=== PATIENT | male | born 1975 | race Caucasian/White ===

== ENCOUNTER 2020-10-02 09:34 | Emergency (ER) | payer BC ==
--- NOTE | 2020-10-02 09:36 | EDM.PDOC ---
ED HPI GENERAL MEDICAL PROBLEM - General Stated Complaint: POSSIBLE KIDNEY STONE Time Seen by Provider: 10/02/20 10:12 Source of Information: Reports: Patient History Limitations: Reports: No Limitations - History of Present Illness INITIAL COMMENTS - FREE TEXT/NARRATIVE: 45-year-old male presents for concern for kidney stone. Asked medical history kidney stones, no past surgical history. Last kidney stone passed on its own without intervention. Patient states that he woke up around 4 AM with right- sided flank pain. Thought it was musculoskeletal in origin, took Motrin without relief. Went to work and notes continued pain. Feels kind of like when he had a kidney stone. Denies any hematuria or dysuria, nausea or vomiting, abdominal pain. Pain does not radiate. Right Flank Pain Score (Numeric/FACES): 7 - Related Data Allergies Allergy/AdvReac Type Severity Reaction Status Date / Time No Known Allergies Allergy Verified 10/02/20 10:07 Home Meds: Home Meds Acetaminophen/oxyCODONE [Percocet 325-5 MG] 1 each PO Q4HR PRN 3 Days #18 tab 10/02/20 [Rx] Ibuprofen [Motrin] 600 mg PO Q6H PRN #28 tab 10/02/20 [Rx] Tamsulosin HCl [Flomax] 0.4 mg PO DAILY #7 capsule 10/02/20 [Rx] ED ROS GENERAL - Review of Systems Review Of Systems: Comprehensive ROS is negative, except as noted in HPI. Constitutional: Reports: No Symptoms ED EXAM, GENERAL - Physical Exam Exam: See Below Exam Limited By: No Limitations General Appearance: Alert, WD/WN, No Apparent Distress Ears: Normal External Exam Nose: Normal Inspection Throat/Mouth: Normal Inspection, Normal Oropharynx, Normal Voice Head: Atraumatic, Normocephalic Neck: Normal Inspection Respiratory/Chest: No Respiratory Distress, Lungs Clear, Normal Breath Sounds, No Accessory Muscle Use Cardiovascular: Normal Peripheral Pulses, Regular Rate, Rhythm, No Edema GI/Abdominal: Soft, Non-Tender Back Exam: No: CVA Tenderness (L), CVA Tenderness (R) Extremities: Normal Inspection Neurological: Alert, Oriented Psychiatric: Normal Affect, Normal Mood Skin Exam: Warm, Dry, Intact, Normal Color Course - Vital Signs Last Recorded V/S: Last Vital Signs Temp 97 F 10/02/20 10:04 Pulse 88 10/02/20 10:04 Resp 18 10/02/20 10:04 BP 172/108 H 10/02/20 10:04 Pulse Ox 96 10/02/20 10:04 - Orders/Labs/Meds Orders: Active Orders 24 hr Category Date Time Status Sodium Chloride 0.9% [Normal Saline] 1,000 ml Med 10/02/20 10:05 Active IV .Bolus Sodium Chloride 0.9% [Saline Flush] Med 10/02/20 10:05 Active 10 ml FLUSH ASDIRECTED PRN Sodium Chloride 0.9% [Saline Flush] Med 10/02/20 10:05 Active 2.5 ml FLUSH ASDIRECTED PRN Saline Lock Insert [OM.PC] Stat Oth 10/02/20 10:05 Ordered Medication Orders Sodium Chloride (Normal Saline) 1,000 mls @ 999 mls/hr IV .Bolus ONE Stop: 10/02/20 11:05 Last Admin: 10/02/20 10:17 Dose: 999 mls/hr Documented by: HANSMAC Sodium Chloride (Saline Flush) 10 ml FLUSH ASDIRECTED PRN PRN Reason: Keep Vein Open Last Admin: 10/02/20 10:22 Dose: 10 ml Documented by: HANSMAC Sodium Chloride (Saline Flush) 2.5 ml FLUSH ASDIRECTED PRN PRN Reason: Keep Vein Open Last Admin: 10/02/20 10:22 Dose: 2.5 ml Documented by: HANSMAC Labs: Laboratory Tests 10/02/20 10/02/20 10/02/20 Range/Units 10:02 10:02 10:15 WBC 10.35 (4.0-11.0) K/uL RBC 4.75 (4.50-5.90) M/uL Hgb 14.6 (13.0-17.0) g/dL Hct 42.6 (38.0-50.0) % MCV 89.7 (80.0-98.0) fL MCH 30.7 (27.0-32.0) pg MCHC 34.3 (31.0-37.0) g/dL RDW Std Deviation 40.5 (28.0-62.0) fl RDW Coeff of [place] 12 (11.0-15.0) % Plt Count 188 (150-400) K/uL MPV 12.20 H (7.40-12.00) fL Neut % (Auto) 73.0 (48.0-80.0) % Lymph % (Auto) 15.8 L (16.0-40.0) % [place] % (Auto) 8.9 (0.0-15.0) % Eos % (Auto) 2.0 (0.0-7.0) % Baso % (Auto) 0.3 (0.0-1.5) % Neut # (Auto) 7.6 H (1.4-5.7) K/uL Lymph # (Auto) 1.6 (0.6-2.4) K/uL [place] # (Auto) 0.9 H (0.0-0.8) K/uL Eos # (Auto) 0.2 (0.0-0.7) K/uL Baso # (Auto) 0.0 (0.0-0.1) K/uL Nucleated RBC % 0.0 /100WBC Nucleated RBCs # 0 K/uL Sodium 140 (136-148) mmol/L Potassium 4.4 (3.5-5.1) mmol/L Chloride 105 (98-107) mmol/L Carbon Dioxide 24.3 (21.0-32.0) mmol/L BUN 19 H (7.0-18.0) mg/dL Creatinine 1.5 H (0.8-1.3) mg/dL Est Cr Clr Drug Dosing 64.21 mL/min Estimated GFR (MDRD) 50.6 ml/min Glucose 257 H (74-106) mg/dL Calcium 9.3 (8.5-10.1) mg/dL Total Bilirubin 0.3 (0.2-1.0) mg/dL AST 37 (15-37) IU/L ALT 92 H (14-63) IU/L Alkaline Phosphatase 80 (46-116) U/L Total Protein 7.2 (6.4-8.2) g/dL Albumin 3.7 (3.4-5.0) g/dL Globulin 3.5 (2.6-4.0) g/dL Albumin/Globulin Ratio 1.1 (0.9-1.6) Urine Color YELLOW Urine Appearance CLEAR Urine pH 6.5 (5.0-8.0) Ur Specific [place] 1.020 (1.001-1.035) Urine Protein NEGATIVE (NEGATIVE) mg/dL Urine Glucose (UA) 500 H (NEGATIVE) mg/dL Urine Ketones NEGATIVE (NEGATIVE) mg/dL Urine Occult Blood LARGE H (NEGATIVE) Urine Nitrite NEGATIVE (NEGATIVE) Urine Bilirubin NEGATIVE (NEGATIVE) Urine Urobilinogen 0.2 (<2.0) EU/dL Ur Leukocyte Esterase NEGATIVE (NEGATIVE) Urine RBC 0-4 (0-2/HPF) Urine WBC 0-1 (0-5/HPF) Ur Epithelial Cells RARE (NONE-FEW) Amorphous Sediment LIGHT (NEGATIVE) Urine Bacteria RARE (NEGATIVE) Meds: Medications Generic Name Dose Route Start Last Admin Trade Name Freq PRN Reason Stop Dose Admin Sodium Chloride 1,000 mls @ 999 mls/hr 10/02/20 10:05 10/02/20 10:17 Normal Saline IV 10/02/20 11:05 999 mls/hr .Bolus ONE Administration Sodium Chloride 10 ml 10/02/20 10:05 10/02/20 10:22 Saline Flush FLUSH 10 ml ASDIRECTED PRN Administration Keep Vein Open Sodium Chloride 2.5 ml 10/02/20 10:05 10/02/20 10:22 Saline Flush FLUSH 2.5 ml ASDIRECTED PRN Administration Keep Vein Open Discontinued Medications Generic Name Dose Route Start Last Admin Trade Name Freq PRN Reason Stop Dose Admin Ketorolac Tromethamine 15 mg 10/02/20 10:07 10/02/20 10:17 Toradol IVPUSH 10/02/20 10:08 15 mg ONETIME ONE Administration Ondansetron HCl 4 mg 10/02/20 10:05 10/02/20 10:17 Zofran IVPUSH 10/02/20 10:06 4 mg ONETIME ONE Administration - Re-Assessments/Exams Free Text/Narrative Re-Assessment/Exam: 10/02/20 10:13 We will get labs, UA, CT abdomen pelvis. Will treat symptomatically with IV fluid bolus, Zofran, Toradol. We will follow up results and disposition accordingly 10/02/20 10:42 CT wet read reveals a 4 mm kidney stone with moderate hydronephrosis on the right side. We will follow-up metabolic panel and official radiology read for final disposition. 10/02/20 10:51 Blood glucose is incidentally quite high with glucosuria; will inform patient to f/u with PMD for diabetes check. 10/02/20 10:[address] reviewed reveals a 5 mm kidney stone. Patient's pain is well controlled after Toradol. Will discharge Departure - Departure Time of Disposition: 10:59 Disposition: Home, Self-Care 01 Condition: Good Clinical Impression: Kidney stone, Hyperglycemia - Discharge Information Prescriptions: Tamsulosin HCl [Flomax] 0.4 mg PO DAILY #7 capsule Ibuprofen [Motrin] 600 mg PO Q6H PRN #28 tab PRN Reason: Pain Acetaminophen/oxyCODONE [Percocet 325-5 MG] 1 each PO Q4HR PRN 3 Days #18 tab PRN Reason: Pain Instructions: Kidney Stones, [id number], Hyperglycemia, [id number] Referrals: PCP,None [Primary Care Provider] - Additional Instructions: Your CT scan is remarkable for a 4 mm kidney stone. This is likely to pass on its own, but there is a chance that it will not. You can always follow-up with your urologist, information provided below. Your labs also incidentally show high blood sugar as well as sugar in your urine. You should follow-up with your primary care physician to be checked for diabetes. The following information is given to patients seen in the emergency department who are being discharged to home. This information is to outline your options for follow-up care. We provide all patients seen in our emergency department with a follow-up referral. The need for follow-up, as well as the timing and circumstances, are variable depending upon the specifics of your emergency department visit. If you don't have a primary care physician on staff, we will provide you with a referral. We always advise you to contact your personal physician following an emergency department visit to inform them of the circumstance of the visit and for follow-up with them and/or the need for any referrals to a consulting specialist. The emergency department will also refer you to a specialist when appropriate. This referral assures that you have the opportunity for follow-up care with a specialist. All of these measure are taken in an effort to provide you with optimal care, which includes your follow-up. Under all circumstances we always encourage you to contact your private physician who remains a resource for coordinating your care. When calling for follow-up care, please make the office aware that this follow-up is from your recent emergency room visit. If for any reason you are refused follow-up, please contact the [facility] Emergency Department at and asked to speak to the emergency department charge nurse. Please follow up with your primary care physician. If you do not have a primary care physician, see below: [facility] [address] [place] [address] My [facility] [address] [place] [address] You could also follow-up with a urologist: [facility] [address] [place] [address] Sepsis Event Note (ED) - Focused Exam Vital Signs: Vital Signs Temp Pulse Resp BP Pulse Ox 10/02/20 10:04 97 F 88 18 172/108 H 96 - My Orders Last 24 Hours: My Active Orders 10/02/20 10:05 Sodium Chloride 0.9% [Normal Saline] 1,000 ml IV .Bolus Sodium Chloride 0.9% [Saline Flush] 10 ml FLUSH ASDIRECTED PRN Sodium Chloride 0.9% [Saline Flush] 2.5 ml FLUSH ASDIRECTED PRN Saline Lock Insert [OM.PC] Stat - Assessment/Plan Last 24 Hours: My Active Orders 10/02/20 10:05 Sodium Chloride 0.9% [Normal Saline] 1,000 ml IV .Bolus Sodium Chloride 0.9% [Saline Flush] 10 ml FLUSH ASDIRECTED PRN Sodium Chloride 0.9% [Saline Flush] 2.5 ml FLUSH ASDIRECTED PRN Saline Lock Insert [OM.PC] Stat
[2020-10-02] MEDS ORDERED: Ondansetron 4 MG/2 ML SDV IVPUSH ONE (10:05)
[2020-10-02] MEDS ORDERED: Sodium Chloride 0.9% 1,000 ML IV ONE (10:05)
[2020-10-02] MEDS ORDERED: Sodium Chloride 0.9% 10 ML Syringe FLUSH PRN (10:05)
[2020-10-02] MEDS ORDERED: Sodium Chloride 0.9% 2.5 ML Syringe FLUSH PRN (10:05)
[2020-10-02] MEDS ORDERED: Ketorolac 15 MG/ML SDV IVPUSH ONE (10:07)
[2020-10-02 10:42] LABS: CARBON DIOXIDE,CO2 24.3 mmol/L (21.0-32.0); POTASSIUM,K 4.4 mmol/L (3.5-5.1)
--- NOTE | 2020-10-02 10:57 | CT ---
INDICATION: Right flank pain COMPARISON: None TECHNIQUE: CT examination of the abdomen and pelvis was performed without intravenous contrast. Thin section axial images were obtained from the lung bases through the pubic symphysis. Oral contrast was not administered. Please note that all CT scans at this facility use dose modulation, iterative reconstruction, and/or weight-based dosing when appropriate to reduce radiation dose to as low as reasonably achievable. FINDINGS: LUNG BASES: Minimal atelectasis. Heart size normal. The lung bases. LIVER/BILIARY SYSTEM:The liver is normal in size and configuration given the lack of intravenous contrast. There is no visible focal mass and there is no intra- or extra hepatic biliary ductal dilatation.The gall bladder appears normal. There is steatosis. ADRENALS: Normal non-contrast appearance KIDNEYS, URETERS and BLADDER:No intrarenal calculi on either side. Right-sided hydronephrosis and hydroureter due to a 5.3 millimeter calcified calculus in the distal right ureter. This is located about 8 centimeters from the right ureterovesical junction. SPLEEN:Normal non-contrast appearance. PANCREAS: Normal non-contrast appearance. RETROPERITONEUM and MESENTERY: There is no mass, adenopathy or aortic aneurysm. GASTROINTESTINAL SYSTEM: There is no evidence of diverticulitis, colitis, mechanical obstruction, or appendicitis. The small bowel as visualized appears normal. PELVIS: No mass, adenopathy or free fluid. OSSEOUS STRUCTURES and ABDOMINAL WALL: There is an age-appropriate appearance of the osseous structures.No significant abdominal wall defect. OTHER: No free fluid or free air. IMPRESSION: Right-sided obstructive uropathy due to a 5.3 millimeter calcified calculus in the distal right ureter about 8 centimeters from the right ureterovesical junction. No intrarenal calculi on either side. Other incidental nonacute appearing findings as discussed above. Please note that all CT scans at this facility use dose modulation, iterative reconstruction, and/or weight-based dosing when appropriate to reduce radiation dose to as low as reasonably achievable. Dictated by Gary West MD @ Oct 02 2020 10:50AM Signed by Dr. Gary West @ Oct 02 2020 10:55AM
== END 2020-10-02 11:21 | disposition home or self-care (01) ==
LOC: MW.ED 09:34
DX: N13.2 Hydronephrosis with renal and ureteral calculous obstruction (principal); R73.9 Hyperglycemia, unspecified; Z79.899 Other long term (current) drug therapy
CPT/HCPCS: 36415; 74176; 80053; 81001; 85025; 96374; 96375; 99284; J1885; J2405; J7030; 99283

== ENCOUNTER 2020-10-06 11:14 | Emergency (ER) | payer BC ==
[2020-10-06] MEDS ORDERED: Sodium Chloride 0.9% 1,000 ML IV ONE (11:32)
[2020-10-06] MEDS ORDERED: Ketorolac 30 MG/ML SDV IVPUSH ONE (11:40)
[2020-10-06] MEDS ORDERED: Ondansetron 4 MG/2 ML SDV IVPUSH ONE (11:40)
--- NOTE | 2020-10-06 12:01 | EDM.PDOC ---
ED HPI GENERAL MEDICAL PROBLEM - General Chief Complaint: Genitourinary Problem Stated Complaint: POSSIBLE KIDNEY STONES Time Seen by Provider: 10/06/20 11:22 Source of Information: Reports: Patient History Limitations: Reports: No Limitations - History of Present Illness INITIAL COMMENTS - FREE TEXT/NARRATIVE: HISTORY AND PHYSICAL: History of present illness: Patient is a 45-year-old male who presents to emergency room today with concern of right-sided and left-sided abdominal pain after being seen in the ED 4 days prior for a 4 to 5 mm urolithiasis. Patient states that his pain has not worsened since his prior ED visit, but he is now having some left-sided abdominal discomfort. Patient states he has been taking the medication provided to him from the prior emergency room visit as scheduled without improvement of his symptoms. Patient states that he is in [place] for work and will be returning home in the next several days so is waiting to follow-up with the u rologist at home. Patient states that his pain has not improved and he does not believe that he had passed the stone. Patient states he has noticed a decrease in bowel movements and his last bowel movement was on Tuesday and states that this was normal for him. Patient states he has been able to urinate without difficulty. Patient denies any health history or any other associated symptoms. Patient denies fever, chills, chest pain, shortness of breath, or cough. Denies headache, neck stiff ness, change in vision, syncope, or near syncope. Denies nausea, vomiting, diarrhea, constipation, or dysuria. Has not noted any blood in urine or stool. Patient has been eating and drinking appropriately. Review of systems: As per history of present illness and below otherwise all systems reviewed and negative. Past medical history: As per history of present illness and as reviewed below otherwise noncontributory. Surgical history: As per history of present illness and as reviewed below otherwise noncontributory. Social history: See social history for further information Family history: As per history of present illness and as reviewed below otherwise noncontributory. Physical exam: General: Patient is alert, oriented, and in no acute distress. Patient sitting comfortably on exam table. HEENT: Atraumatic, normocephalic, pupils equal and reactive bilaterally, negative for conjunctival pallor or scleral icterus, mucous membranes moist, TMs normal bilaterally, throat clear, neck supple, nontender, trachea midline. No drooling or trismus noted. No meningeal signs. No hot potato voice noted. Lungs: Clear to auscultation, breath sounds equal bilaterally, chest nontender. Heart: S1S2, regular rate and rhythm without overt murmur Abdomen: Soft, nondistended, nontender. Negative for masses or hepatosplenomegaly. Positive for costovertebral tenderness of the right. Pelvis: Stable nontender. Genitourinary: Deferred. Rectal: Deferred. Skin: Intact, warm, dry. No lesions or rashes noted. Extremities: Atraumatic, negative for cords or calf pain. Neurovascular unremarkable. Neuro: Awake, alert, oriented. Cranial nerves II through XII unremarkable. Cerebellum unremarkable. Motor and sensory unremarkable throughout. Exam nonfocal. Notes: Call and speak to the urologist on-call, Dr. Doulgas, and thoroughly discussed patient's case. He would like us to formally discharge patient from the emergency room and head straight to his office/clinic following discharge from the emergency room. Discussed going straight to Dr. Douglas's office and the importance of this following discharge from the emergency room. Signs and symptoms that would prompt return to the ED thoroughly discussed with patient. Voices understanding and is agreeable to plan of care. Denies any further questions or concerns at this time. Diagnostics: EKG, CBC, CMP, lipase, UA, Abd/Pelvic CT w/o cont Therapeutics: NS, Zofran, Toradol Prescription: None Impression: Ureterolithiasis Acute kidney injury Plan: 1. Go straight to the urologist, Dr. Douglas's office following discharge from the ED. Return to the ED as needed and as discussed. Definitive disposition and diagnosis as appropriate pending reevaluation and review of above. right flank Pain Score (Numeric/FACES): 6 - Related Data Allergies Allergy/AdvReac Type Severity Reaction Status Date / Time No Known Allergies Allergy Verified 10/06/20 11:23 Home Meds: Home Meds Acetaminophen/oxyCODONE [Percocet 325-5 MG] 1 each PO Q4HR PRN 3 Days #18 tab 10/02/20 [Rx] Ibuprofen [Motrin] 600 mg PO Q6H PRN #28 tab 10/02/20 [Rx] Tamsulosin HCl [Flomax] 0.4 mg PO DAILY #7 capsule 10/02/20 [Rx] Past Medical History - Past Health History Medical/Surgical History: Denies Medical/Surgical History Genitourinary History: Reports: Renal Calculus - Infectious Disease History Infectious Disease History: Reports: Chicken Pox - Past Surgical History HEENT Surgical History: Reports: Tonsillectomy Social & Family History - Family History Family Medical History: No Pertinent Family History - Tobacco Use Tobacco Use Status *Q: Never Tobacco User - Caffeine Use Caffeine Use: Reports: Coffee - Recreational Drug Use Recreational Drug Use: No ED ROS GENERAL - Review of Systems Review Of Systems: Comprehensive ROS is negative, except as noted in HPI. ED EXAM, GENERAL - Physical Exam Exam: See Below (see dictation) Course - Vital Signs Last Recorded V/S: Last Vital Signs Temp 98.8 F 10/06/20 11:23 Pulse 106 H 10/06/20 11:23 Resp 19 10/06/20 11:23 BP 145/94 H 10/06/20 11:23 Pulse Ox 99 10/06/20 11:23 - Orders/Labs/Meds Orders: Active Orders 24 hr Category Date Time Status EKG Documentation Completion [RC] STAT Care 10/06/20 11:42 Active Labs: Laboratory Tests 10/06/20 10/06/20 10/06/20 Range/Units 11:31 11:50 11:50 WBC 12.02 H (4.0-11.0) K/uL RBC 4.40 L (4.50-5.90) M/uL Hgb 13.4 (13.0-17.0) g/dL Hct 39.4 (38.0-50.0) % MCV 89.5 (80.0-98.0) fL MCH 30.5 (27.0-32.0) pg MCHC 34.0 (31.0-37.0) g/dL RDW Std Deviation 40.5 (28.0-62.0) fl RDW Coeff of Dale 12 (11.0-15.0) % Plt Count 212 (150-400) K/uL MPV 12.20 H (7.40-12.00) fL Neut % (Auto) 74.9 (48.0-80.0) % Lymph % (Auto) 11.6 L (16.0-40.0) % [place]offey % (Auto) 12.1 (0.0-15.0) % Eos % (Auto) 1.2 (0.0-7.0) % Baso % (Auto) 0.2 (0.0-1.5) % Neut # (Auto) 9.0 H (1.4-5.7) K/uL Lymph # (Auto) 1.4 (0.6-2.4) K/uL [place]offey # (Auto) 1.5 H (0.0-0.8) K/uL Eos # (Auto) 0.1 (0.0-0.7) K/uL Baso # (Auto) 0.0 (0.0-0.1) K/uL Nucleated RBC % 0.0 /100WBC Nucleated RBCs # 0 K/uL Lactate (0.20-2.00) mmol/L Sodium 139 (136-148) mmol/L Potassium 4.2 (3.5-5.1) mmol/L Chloride 105 (98-107) mmol/L Carbon Dioxide 21.4 (21.0-32.0) mmol/L BUN 21 H (7.0-18.0) mg/dL Creatinine 2.1 H (0.8-1.3) mg/dL Est Cr Clr Drug Dosing 45.87 mL/min Estimated GFR (MDRD) 34.3 ml/min Glucose 144 H (74-106) mg/dL Calcium 9.4 (8.5-10.1) mg/dL Total Bilirubin 0.5 (0.2-1.0) mg/dL AST 18 (15-37) IU/L ALT 45 (14-63) IU/L Alkaline Phosphatase 50 (46-116) U/L Total Protein 7.3 (6.4-8.2) g/dL Albumin 3.5 (3.4-5.0) g/dL Globulin 3.8 (2.6-4.0) g/dL Albumin/Globulin Ratio 0.9 (0.9-1.6) Lipase (73-393) U/L Urine Color YELLOW Urine Appearance CLEAR Urine pH 5.5 (5.0-8.0) Ur Specific [place] 1.020 (1.001-1.035) Urine Protein NEGATIVE (NEGATIVE) mg/dL Urine Glucose (UA) NEGATIVE (NEGATIVE) mg/dL Urine Ketones NEGATIVE (NEGATIVE) mg/dL Urine Occult Blood TRACE-INTACT H (NEGATIVE) Urine Nitrite NEGATIVE (NEGATIVE) Urine Bilirubin NEGATIVE (NEGATIVE) Urine Urobilinogen 0.2 (<2.0) EU/dL Ur Leukocyte Esterase NEGATIVE (NEGATIVE) Urine RBC NONE SEEN (0-2/HPF) Urine WBC 0-2 (0-5/HPF) Ur Epithelial Cells NOT SEEN (NONE-FEW) Amorphous Sediment RARE (NEGATIVE) Urine Bacteria RARE (NEGATIVE) Urine Mucus RARE (NONE-MOD) 10/06/20 10/06/20 Range/Units 11:50 11:50 WBC (4.0-11.0) K/uL RBC (4.50-5.90) M/uL Hgb (13.0-17.0) g/dL Hct (38.0-50.0) % MCV (80.0-98.0) fL MCH (27.0-32.0) pg MCHC (31.0-37.0) g/dL RDW Std Deviation (28.0-62.0) fl RDW Coeff of Dale (11.0-15.0) % Plt Count (150-400) K/uL MPV (7.40-12.00) fL Neut % (Auto) (48.0-80.0) % Lymph % (Auto) (16.0-40.0) % Coffey % (Auto) (0.0-15.0) % Eos % (Auto) (0.0-7.0) % Baso % (Auto) (0.0-1.5) % Neut # (Auto) (1.4-5.7) K/uL Lymph # (Auto) (0.6-2.4) K/uL [place]y # (Auto) (0.0-0.8) K/uL Eos # (Auto) (0.0-0.7) K/uL Baso # (Auto) (0.0-0.1) K/uL Nucleated RBC % /100WBC Nucleated RBCs # K/uL Lactate 0.9 (0.20-2.00) mmol/L Sodium (136-148) mmol/L Potassium (3.5-5.1) mmol/L Chloride (98-107) mmol/L Carbon Dioxide (21.0-32.0) mmol/L BUN (7.0-18.0) mg/dL Creatinine (0.8-1.3) mg/dL Est Cr Clr Drug Dosing mL/min Estimated GFR (MDRD) ml/min Glucose (74-106) mg/dL Calcium (8.5-10.1) mg/dL Total Bilirubin (0.2-1.0) mg/dL AST (15-37) IU/L ALT (14-63) IU/L Alkaline Phosphatase (46-116) U/L Total Protein (6.4-8.2) g/dL Albumin (3.4-5.0) g/dL Globulin (2.6-4.0) g/dL Albumin/Globulin Ratio (0.9-1.6) Lipase 70 L (73-393) U/L Urine Color Urine Appearance Urine pH (5.0-8.0) Ur Specific [place] (1.001-1.035) Urine Protein (NEGATIVE) mg/dL Urine Glucose (UA) (NEGATIVE) mg/dL Urine Ketones (NEGATIVE) mg/dL Urine Occult Blood (NEGATIVE) Urine Nitrite (NEGATIVE) Urine Bilirubin (NEGATIVE) Urine Urobilinogen (<2.0) EU/dL Ur Leukocyte Esterase (NEGATIVE) Urine RBC (0-2/HPF) Urine WBC (0-5/HPF) Ur Epithelial Cells (NONE-FEW) Amorphous Sediment (NEGATIVE) Urine Bacteria (NEGATIVE) Urine Mucus (NONE-MOD) Meds: Medications Discontinued Medications Generic Name Dose Route Start Last Admin Trade Name Freq PRN Reason Stop Dose Admin Sodium Chloride 1,000 mls @ 999 mls/hr 10/06/20 11:32 10/06/20 11:59 Normal Saline IV 10/06/20 12:32 999 mls/hr BOLUS ONE Administration Ketorolac Tromethamine 30 mg 10/06/20 11:40 10/06/20 11:59 Toradol IVPUSH 10/06/20 11:41 30 mg ONETIME ONE Administration Ondansetron HCl 4 mg 10/06/20 11:40 10/06/20 12:00 Zofran IVPUSH 10/06/20 11:41 4 mg ONETIME ONE Administration Departure - Departure Time of Disposition: 13:53 Disposition: Home, Self-Care 01 Clinical Impression: Ureterolithiasis, Acute kidney injury - Discharge Information Instructions: Kidney Stones, [id number] Referrals: PCP,None [Primary Care Provider] - Forms: ED Department Discharge Additional Instructions: The following information is given to patients seen in the emergency department who are being discharged to home. This information is to outline your options for follow-up care. We provide all patients seen in our emergency department with a follow-up referral. The need for follow-up, as well as the timing and circumstances, are variable depending upon the specifics of your emergency department visit. If you don't have a primary care physician on staff, we will provide you with a referral. We always advise you to contact your personal physician following an emergency department visit to inform them of the circumstance of the visit and for follow-up with them and/or the need for any referrals to a consulting specialist. The emergency department will also refer you to a specialist when appropriate. This referral assures that you have the opportunity for follow-up care with a specialist. All of these measure are taken in an effort to provide you with optimal care, which includes your follow-up. Under all circumstances we always encourage you to contact your private physician who remains a resource for coordinating your care. When calling for follow-up care, please make the office aware that this follow-up is from your recent emergency room visit. If for any reason you are refused follow-up, please contact the [facility] Emergency Department at and asked to speak to the emergency department charge nurse. [facility] [address] [place] [address] [address] [facility] - Urology, Dr. Douglas [address] [place] [id number] 1. Go straight to the urologist, Dr. Douglas's office following discharge from the ED. Return to the ED as needed and as discussed. Sepsis Event Note (ED) - Evaluation Sepsis Screening Result: No Definite Risk - Focused Exam Vital Signs: Vital Signs Temp Pulse Resp BP Pulse Ox 10/06/20 11:23 98.8 F 106 H 19 145/94 H 99 - My Orders Last 24 Hours: My Active Orders 10/06/20 11:42 EKG Documentation Completion [RC] STAT - Assessment/Plan Last 24 Hours: My Active Orders 10/06/20 11:42 EKG Documentation Completion [RC] STAT
[2020-10-06 12:29] LABS: CARBON DIOXIDE,CO2 21.4 mmol/L (21.0-32.0); POTASSIUM,K 4.2 mmol/L (3.5-5.1)
--- NOTE | 2020-10-06 12:52 | CT ---
INDICATION: Right-sided stone with increasing pain COMPARISON: October 02, 2020 TECHNIQUE: CT examination of the abdomen and pelvis was performed without intravenous contrast. Thin section axial images were obtained from the lung bases through the pubic symphysis. Oral contrast was not administered. Please note that all CT scans at this facility use dose modulation, iterative reconstruction, and/or weight-based dosing when appropriate to reduce radiation dose to as low as reasonably achievable. FINDINGS: LUNG BASES: Trace basilar atelectasis. Heart size is normal at the lung bases. LIVER/BILIARY SYSTEM:Hepatic steatosis. No focal mass or biliary ductal dilatation. Gallbladder appears normal.The gall bladder appears normal. ADRENALS: Normal non-contrast appearance KIDNEYS, URETERS and BLADDER:No intrarenal calculi on either side. Right hydronephrosis and right hydroureter due to a 5.3 millimeter calcified calculus in the distal right ureter. This is located about 4-5 centimeters from the right ureterovesical junction and has moved down from about 8 centimeters previously SPLEEN:Normal non-contrast appearance. PANCREAS: Normal non-contrast appearance. RETROPERITONEUM and MESENTERY: There is no mass, adenopathy or aortic aneurysm. GASTROINTESTINAL SYSTEM: There is no evidence of diverticulitis, colitis, mechanical obstruction, or appendicitis. The small bowel as visualized appears normal. PELVIS: No mass, adenopathy or free fluid. OSSEOUS STRUCTURES and ABDOMINAL WALL: There is an age-appropriate appearance of the osseous structures.No significant abdominal wall defect. OTHER: No free fluid or free air. IMPRESSION: Re-demonstration of obstructive uropathy due to a 5.3 millimeter calcified calculus in the distal right ureter about 4-5 centimeters from the right ureterovesical junction. This has moved from about 8 centimeters on the study of October 02, 2020. Hepatic steatosis. Please note that all CT scans at this facility use dose modulation, iterative reconstruction, and/or weight-based dosing when appropriate to reduce radiation dose to as low as reasonably achievable. Dictated by Gary West MD @ Oct 06 2020 12:43PM Signed by Dr. Gary West @ Oct 06 2020 12:51PM
--- NOTE | 2020-10-06 20:34 | PCM.SN.2 ---
#1 Interpretation EKG Date: 10/06/20 Time: 11:47 Rhythm: NSR Rate (Beats/Min): 98 [place]: Normal P-Wave: Present QRS: Normal ST-T: Normal QT: Normal Comparison: NA - No Prior EKG EKG Interpretation Comments: Normal Sinus Rhythm w/ S1Q3T3
== END 2020-10-06 14:06 | disposition home or self-care (01) ==
LOC: MW.ED 11:14
DX: N13.2 Hydronephrosis with renal and ureteral calculous obstruction (principal); N17.9 Acute kidney failure, unspecified; Z90.49 Acquired absence of other specified parts of digestive tract
CPT/HCPCS: 74176; 80053; 81001; 83605; 83690; 85025; 93005; 96374; 96375; 99284; J1885; J2405; J7030; 93010; 99283

== ENCOUNTER 2020-10-07 08:18 | Day surgery (SDC) | payer BC ==
[2020-10-07] MEDS ORDERED: Sodium Chloride 0.9% 2.5 ML Syringe FLUSH PRN (09:39)
[2020-10-07] MEDS ORDERED: Sodium Chloride 0.9% 10 ML Syringe FLUSH PRN (09:39)
[2020-10-07] MEDS ORDERED: Sodium Chloride 0.9% 10 ML SDV IV PRN (09:39)
[2020-10-07] MEDS ORDERED: ceFAZolin 2 GM in Premix Bag 1 BAG IV ONE (09:39)
[2020-10-07] MEDS ORDERED: Lactated Ringers 1,000 ML IV SCH (09:45)
--- NOTE | 2020-10-07 10:59 | PCM.PREANE ---
Preanesthetic Assessment - Anesthesia/Transfusion/Family Hx Anesthesia History: Prior Anesthesia Without Reaction Family History of Anesthesia Reaction: No Transfusion History: No Prior Transfusion(s) Intubation History: Unknown - Review of Systems General: No Symptoms Pulmonary: No Symptoms Cardiovascular: No Symptoms Gastrointestinal: Abdominal Pain Neurological: No Symptoms Other: Reports: None - Physical Assessment Height: 5 ft 10 in Weight: 113.398 kg ASA Class: 2 Mental Status: Alert & Oriented x3 Airway Class: Mallampati = 3 Dentition: Reports: Normal Dentition Thyro-Mental Finger Breadths: 3 Mouth Opening Finger Breadths: 2 ROM/Head Extension: Limited/Partial Lungs: Clear to Auscultation, Normal Respiratory Effort Cardiovascular: Regular Rate, Regular Rhythm - Lab Values: Laboratory Last Values SARS-CoV-2 RNA (OSIEL) NEGATIVE (NEGATIVE) 10/07/20 08:36 - Allergies Allergies/Adverse Reactions: Allergies Allergy/AdvReac Type Severity Reaction Status Date / Time No Known Allergies Allergy Verified 10/07/20 07:39 - Blood Blood Available: No - Anesthesia Plan Pre-Op Medication Ordered: None - Acknowledgements Anesthesia Type Planned: General Anesthesia Pt an Appropriate Candidate for the Planned Anesthesia: Yes Alternatives and Risks of Anesthesia Discussed w Pt/Guardian: Yes Pt/Guardian Understands and Agrees with Anesthesia Plan: Yes PreAnesthesia Questionnaire - Past Health History Medical/Surgical History: Denies Medical/Surgical History HEENT History: Reports: None Cardiovascular History: Reports: None Respiratory History: Reports: None Gastrointestinal History: Reports: None Genitourinary History: Reports: Renal Calculus Musculoskeletal History: Reports: None Neurological History: Reports: None Psychiatric History: Reports: None Endocrine/Metabolic History: Reports: Obesity/BMI 30+ (BMI 35.9) Hematologic History: Reports: None Immunologic History: Reports: None Oncologic (Cancer) History: Reports: None Dermatologic History: Reports: None - Infectious Disease History Infectious Disease History: Reports: Chicken Pox - Past Surgical History Head Surgeries/Procedures: Reports: None HEENT Surgical History: Reports: Oral Surgery, Tonsillectomy Cardiovascular Surgical History: Reports: None Respiratory Surgical History: Reports: None GI Surgical History: Reports: None Male Surgical History: Reports: None Endocrine Surgical History: Reports: None Neurological Surgical History: Reports: None Musculoskeletal Surgical History: Reports: None Oncologic Surgical History: Reports: None Dermatological Surgical History: Reports: None - SUBSTANCE USE Tobacco Use Status *Q: Never Tobacco User - HOME MEDS Home Medications: Home Meds Acetaminophen/oxyCODONE [Percocet 325-5 MG] 1 each PO Q4HR PRN 3 Days #18 tab 10/02/20 [Rx] Ibuprofen [Motrin] 600 mg PO Q6H PRN #28 tab 10/02/20 [Rx] Tamsulosin HCl [Flomax] 0.4 mg PO DAILY #7 capsule 10/02/20 [Rx] - CURRENT (IN HOUSE) MEDS Current Meds: Current Medications Lactated Ringer's (Ringers, Lactated) 1,000 mls @ 100 mls/hr IV ASDIRECTED SYLVESTER Sodium Chloride (Saline Flush) 10 ml FLUSH ASDIRECTED PRN PRN Reason: Keep Vein Open Sodium Chloride (Saline Flush) 2.5 ml FLUSH ASDIRECTED PRN PRN Reason: Keep Vein Open Sodium Chloride (Normal Saline) 10 ml IV ASDIRECTED PRN PRN Reason: IV Use Discontinued Medications Cefazolin Sodium/Dextrose 2 gm (/ Premix) 50 mls @ 100 mls/hr IV ONCALL ONE Stop: 10/07/20 10:08
[2020-10-07] MEDS ORDERED: fentaNYL 100 MCG/2 ML SDV IVPUSH PRN (11:09)
[2020-10-07] MEDS ORDERED: Propofol 200 MG/20 ML SDV ONE (11:43)
[2020-10-07] MEDS ORDERED: Midazolam 1 MG/ML 2 ML SDV ONE ×2 (11:43→13:41)
[2020-10-07] MEDS ORDERED: fentaNYL 100 MCG/2 ML SDV ONE (11:43)
[2020-10-07] MEDS ORDERED: Iopamidol 408 MG/ML 20 ML SDV ONE (11:55)
[2020-10-07] MEDS ORDERED: Dexamethasone 4 MG/ML 5 ML MDV ONE (13:01)
[2020-10-07] MEDS ORDERED: Ondansetron 4 MG/2 ML SDV ONE (13:01)
[2020-10-07] MEDS ORDERED: HYDROmorphone 2 MG/ML Syringe IVPUSH PRN (13:08)
[2020-10-07] MEDS ORDERED: Naloxone 0.4 MG/ML Syringe IVPUSH PRN (13:08)
[2020-10-07] MEDS ORDERED: Ondansetron 4 MG/2 ML SDV IVPUSH PRN (13:08)
[2020-10-07] MEDS ORDERED: Albuterol 0.083% 2.5 MG/3 ML Neb Soln NEB PRN (13:08)
[2020-10-07] MEDS ORDERED: 50% Dextrose in Water 50 ML Syringe IVPUSH PRN (13:08)
[2020-10-07] MEDS ORDERED: Atropine 0.1 MG/ML 10 ML Syringe IVPUSH PRN ×2 (13:08)
[2020-10-07] MEDS ORDERED: EPINEPHrine 1:10,000 1 MG/10 ML Syringe IVPUSH PRN (13:08)
[2020-10-07] MEDS ORDERED: Ketorolac 30 MG/ML SDV ONE (13:16)
[2020-10-07] MEDS ORDERED: IBUPROFEN 600 MG PO PRN (13:42)
[2020-10-07] MEDS ORDERED: OXYCODONE PO PRN (13:42)
[2020-10-07] MEDS ORDERED: ACETAMINOPHEN PO PRN (13:42)
[2020-10-07] MEDS: fentaNYL 100 MCG/2 ML SDV IVPUSH PRN ×2 (13:57→14:03)
--- NOTE | 2020-10-07 14:17 | PCM.POSTAN ---
POST ANESTHESIA ASSESSMENT - MENTAL STATUS Mental Status: Alert, Oriented - VITAL SIGNS Vital Signs: Last Vital Signs Temp 36.7 C 10/07/20 10:50 Pulse 85 10/07/20 14:12 Resp 17 10/07/20 14:12 BP 137/85 10/07/20 14:12 Pulse Ox 96 10/07/20 14:12 - RESPIRATORY Respiratory Status: Respiratory Rate WNL, Airway Patent, O2 Saturation Stable - CARDIOVASCULAR CV Status: Pulse Rate WNL, Blood Pressure Stable - GASTROINTESTINAL GI Status: No Symptoms - PAIN Pain Score: 0 - POST OP HYDRATION Hydration Status: Adequate & Stable - OBSERVATIONS Free Text/Narrative:: The patient has no complaints at this time. There were no apparent anesthetic complications at this time.
--- NOTE | 2020-10-07 14:57 | PCM48HPAN ---
Post Anesthesia Note - EVALUATION WITHIN 48HRS OF ANESTHETIC Vital Signs in Normal Range: Yes Patient Participated in Evaluation: Yes Respiratory Function Stable: Yes Airway Patent: Yes Cardiovascular Function Stable: Yes Hydration Status Stable: Yes Pain Control Satisfactory: Yes Nausea and Vomiting Control Satisfactory: Yes Mental Status Recovered: Yes Vital Signs: Last Vital Signs Temp 36.7 C 10/07/20 10:50 Pulse 85 10/07/20 14:12 Resp 17 10/07/20 14:12 BP 137/85 10/07/20 14:12 Pulse Ox 96 10/07/20 14:12 - COMMENTS/OBSERVATIONS Free Text/Narrative:: The patient has no complaints at this time. There were no apparent anesthetic complications at this time. Discharge per criteria.
--- NOTE | 2020-10-07 16:06 | OR ---
SURGEON: Dewey Mobley M.D. DATE OF PROCEDURE: 10/07/2020 PREOPERATIVE DIAGNOSIS: Right lower ureteral stone, 5 mm. POSTOPERATIVE DIAGNOSIS: Right lower ureteral stone, 5 mm. OPERATION: Right ureteroscopy, stone removal. DESCRIPTION OF PROCEDURE: The patient was given general anesthesia. He was placed in dorsal lithotomy position, prepped and draped in sterile drapes. Cystoscope was introduced in the bladder without difficulty. The inside of bladder was normal. The urethra was normal. A guidewire was attempted, could not go through, so a Glidewire was then used to go beyond the stone. The lower ureter was then dilated using the UroMax II balloon dilator to approximately 15-Green[place]. The rigid ureteroscope was then placed in the right lower ureter. The stone could not be removed using the grasper, so the Zero Tip basket was advanced and the stone was removed on the first attempt. The stone was submitted. The Glidewire was removed. Ureteroscopy was done to make sure that there was no undue damage to the ureter, none was found. With that done, the bladder was emptied, and the patient moved to recovery room in good condition. CAYDEN / NANETTE /[id number]
[2020-10-08] MEDS ORDERED: Tamsulosin 0.4 MG Cap.ER PO SCH (09:00)
--- NOTE | 2020-10-08 13:04 | CR ---
INDICATION: Ureteroscopy Impression : 12 seconds fluoro time. Two images. Please see procedure notes for discussion. Dictated by William Kitchen MD @ Oct 08 2020 1:03PM Signed by Dr. William Kitchen @ Oct 08 2020 1:03PM
== END 2020-10-07 14:55 | disposition home or self-care (01) ==
LOC: MW.SDS 08:18
PROVIDERS: ATTEND Urology
DX: N20.1 Calculus of ureter (principal); Z01.812 Encounter for preprocedural laboratory examination; Z20.828 Contact with and (suspected) exposure to other viral communicable diseases; E66.9 Obesity, unspecified; Z68.35 Body mass index [BMI] 35.0-35.9, adult
CPT/HCPCS: 52352; 76000; 87635; C1769; J0131; J0690; J1100; J1885; J2001; J2250; J2704; J3010; J7120; Q9966; 00918; J2405; U0002